=== PATIENT | female | born 1985 | race Caucasian/White ===

== ENCOUNTER 2018-02-05 15:08 | Emergency (ER) | payer OTHER ==
[~2018-02-05] VITALS: Ht 170.2 cm; Wt 84.3 kg
[~2018-02-05 15:08] MED LIST: OMEG10007 PO
[2018-02-05 15:15] VITALS: TEMP 37.8; Ht 170.2 cm; Wt 84.3 kg
[2018-02-05 15:22] VITALS: O2SAT 95
[2018-02-05] MEDS ORDERED: PREN1TAB26 PO (16:06)
[2018-02-05 16:25] LABS: BASO % 0.1 %; BASO ABS # 0.01 K/uL (0-0.2); EOS % 1.7 %; EOS ABS # 0.18 K/uL (0-0.5); HEMATOCRIT 38.1 % (37-47); HEMOGLOBIN 13.1 g/dL (12.0-16.0); IG# 0.12 K/uL (0.00-0.02); LYMPH % 11.2 %; LYMPH ABS # 1.19 K/uL (1.2-3.4); MEAN CELL VOLUME 97.2 fL (80-100); MEAN CORPUSCULAR HEMOGLOBIN 33.4 pg (25-34); MEAN CORPUSCULAR HGB CONC 34.4 g/dl (32-36); MEAN PLATELET VOLUME 12.1 fL (7.4-10.4); MONO % 7.4 %; MONO ABS # 0.79 K/uL (0.11-0.59); NEUT % 78.5 %; NEUT ABS # 8.37 K/uL (1.4-6.5); PLATELET COUNT 142 K/uL (130-400); RED CELL DISTRIBUTION WIDTH CV 13.6 % (11.5-14.5); RED CELL DISTRIBUTION WIDTH SD 47.8 fL (36.4-46.3); WHITE BLOOD COUNT 10.66 K/uL (4.8-10.8)
[2018-02-05 16:33] LABS: CALCIUM 8.8 mg/dl (8.5-10.1); CREATININE 0.72 mg/dl (0.60-1.20); POTASSIUM 3.7 mmol/L (3.5-5.1)
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
[2018-02-05 18:58] VITALS: BP 130/78; PULSE 80; O2SAT 99
== END 2018-02-05 19:30 | disposition home or self-care (01) ==
LOC: EDBD 15:08 → C.EDC 15:09
DX: S40.012A Contusion of left shoulder, initial encounter (principal); S20.219A Contusion of unspecified front wall of thorax, initial encounter; V48.5XXA Car driver injured in noncollision transport accident in traffic accident, initial encounter; Y92.488 Other paved roadways as the place of occurrence of the external cause; Z33.1 Pregnant state, incidental

== ENCOUNTER 2020-08-02 13:25 | Inpatient (IN) ==
[2020-08-02] MEDS ORDERED: PENICILLIN G POTASSIUM 3 MU in DEXTROSE 5% 100 ML IV PRN (14:26)
[2020-08-02] MEDS ORDERED: OXYTOCIN 30 UNITS/500 ML BAG IV PRN ×3 (14:26→20:03)
[2020-08-02] MEDS ORDERED: LACTATED RINGER'S 1,000 ML IV PRN (14:26)
[2020-08-02 14:56] LABS: Hemoglobin 12.3 g/dL (12.0-16.0); Mean Corpuscular Hemoglobin 33.4 pg (25-34); Mean Corpuscular Hgb Conc 34.2 g/dL (32-36); Mean Corpuscular Volume 97.8 fL (80-100); Mean Platelet Volume 11.6 fL (7.4-10.4); Platelet Count 137 K/uL (130-400); RDW Coefficient of Variation 14.2 % (11.5-14.5); RDW Standard Deviation 50.9 fL (36.4-46.3); Red Blood Count 3.68 M/uL (4.2-5.4); White Blood Count 11.01 K/uL (4.8-10.8)
[2020-08-02] MEDS ORDERED: PENICILLIN G POTASSIUM 6 MU in DEXTROSE 5% 250 ML IV ONE (15:00)
--- NOTE | 2020-08-02 15:09 | Obstetrical Progress Note ---
Date of Service August 02, 2020 Assessment & Plan Admission and Anticipated Discharge Date Admission Date: August 02, 2020 Subjective Admit Note 34 F P4014 at 38.3 weeks admitted with SROM clear fluid. FHT CAT 1. History of Covid positive over 21 days ago in June. GBS is unknown due to not being done in office. Cervix is 2/60/-3/vertex/posterior. EFW 8 lbs. Will start antibiotics and Oxytocin to start induction of labor. Results & Data ([facility]) Vital Signs (Past 12 Hours) Vital Signs Temp Pulse Resp BP 08/02/20 14:57 37.0 C 70 20 135/65 08/02/20 13:37 37.1 C 80 20 147/67 H
--- NOTE | 2020-08-02 15:14 | Anesthesiology Consultation ---
Date of Service August 02, 2020 Assessment & Plan Chart Review Chart Review: Acceptable Risk for Surgery, Patient NOT seen in Pre Admission Testing and Acceptable Risk for Labor Epidural Consults Requested none ASA ASA2 Proposed Anesthesia Anesthesia Type: Labor Epidural and CSE History Height/Weight Height: 5 ft 10 in Weight: 90.718 kg Allergies Allergy/AdvReac Type Severity Reaction Status Date / Time No Known Allergies Allergy Verified 08/02/20 14:24 Medications Home Medications Medication Instructions Recorded Confirmed Last Taken prenat.vits,ike,wpf-hrws-ffaaw 1 tab PO DAILY #0 02/05/18 08/02/20 08/01/20 09:00 [ Vitamin] Active Medications Generic Name Dose Route Start Last Admin Trade Name Freq PRN Reason Stop Dose Admin Penicillin G Potassium 6 mu/ 262 mls @ 262 mls/hr 08/02/20 15:00 08/02/20 15:00 Dextrose IV 08/02/20 15:59 262 mls/hr 1500 ONE Administration Lactated Ringer's 1,000 mls @ 125 mls/hr 08/02/20 14:26 08/02/20 15:01 Lr IV 08/04/20 14:25 0 mls/hr .Q8H PRN Infusion L&D Protocol Protocol Exercise / Class Metabolic Activity II 4-5 Yardwork/Stairs/Walk up hill Past Anesthesia History No Hx of Anesthesia Complications and No Family Hx of Anesthesia Complications History of PONV No Hx of PONV and No Hx of Motion Sickness Social History Smoking Status: Never smoker Hx Alcohol Use: No Hx Substance Use: No substance use type: does not use Physical Exam Vital Signs Last Vital Signs Temp 37.0 C 08/02/20 14:57 Pulse 70 08/02/20 14:57 Resp 20 08/02/20 14:57 BP 135/65 08/02/20 14:57 Testing Laboratory Results 08/02/20 14:38
--- NOTE | 2020-08-02 19:59 | Delivery Summary ---
Vaginal Delivery Summary Date of Service August 02, 2020 Vaginal Delivery Summary Delivery Note live male MITCHEL over intact perineum with delayed cord clamping. Apgars 8/9 weight pending. Cord blood obtained and placenta delivered spontaneously and intact. No tears. EBL 100 ml. Final sponge and instrument count are correct. Mom and baby stable.
[2020-08-02] MEDS ORDERED: BENZOCAINE 20% AER SPR 82.5 GM CAN EXT PRN (20:03)
[2020-08-02] MEDS ORDERED: bisacodyL 10 MG SUPP PR PRN (20:03)
[2020-08-02] MEDS ORDERED: SUPERCREAM 0.870% 15 GM JAR EXT PRN (20:03)
[2020-08-02] MEDS ORDERED: HYDROCORTISONE ACETATE 25 MG SUPP PR PRN (20:03)
[2020-08-02] MEDS ORDERED: ACETAMINOPHEN 325 MG TAB PO PRN (20:03)
[2020-08-02] MEDS ORDERED: DIPHTHERIA/TETANUS/PERTUSSIS 0.5 ML SYR/VIAL IM ONE (20:03)
[2020-08-02] MEDS ORDERED: DOCUSATE SODIUM 100 MG CAP PO SCH (21:00)
[2020-08-03 06:05] LABS: Hematocrit (blood only) 36.5 % (37-47); Hemoglobin 12.2 g/dL (12.0-16.0); Mean Corpuscular Hemoglobin 32.7 pg (25-34); Mean Corpuscular Hgb Conc 33.4 g/dL (32-36); Mean Corpuscular Volume 97.9 fL (80-100); Mean Platelet Volume 11.9 fL (7.4-10.4); Platelet Count 130 K/uL (130-400); RDW Coefficient of Variation 14.3 % (11.5-14.5); RDW Standard Deviation 50.9 fL (36.4-46.3); Red Blood Count 3.73 M/uL (4.2-5.4); White Blood Count 14.08 K/uL (4.8-10.8)
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
[2020-08-03] MEDS ORDERED: PRENATAL VITAMIN 1 TAB PO SCH (08:00)
[2020-08-03] MEDS: IBUPROFEN 600 MG TAB PO PRN ×2 (08:09→16:49)
[2020-08-03] MEDS ORDERED: NON-FORMULARY MEDICATION (Prenat.Vits,Cal,Min-Iron-Folic Tablet) PO SCH (09:00)
[2020-08-03] MEDS ORDERED: bisacodyL 5 MG TABEC PO SCH (20:00)
== END 2020-08-03 20:45 | disposition home or self-care (01) | DRG 807 ==
LOC: OPB 13:25 → 4S1 13:31 → 4S2 22:20